=== PATIENT | female | born 1935 | race Caucasian/White ===

== ENCOUNTER 2022-04-26 17:11 | Inpatient (IN) | payer MEDICARE, SELFPAY ==
[2022-04-26 18:17] LABS: #Eosinphils 0.1 thou/uL (0.0-0.7); #Lymphocytes 0.7 thou/uL (1.20-3.40); #Monocytes 1.3 thou/uL (0.11-0.59); #Neutrophils 13.4 thou/uL (1.40-6.50); %Basophils 0.2 % (0.0-1.0); %Eosinophils 0.4 % (0.0-10.0); %Lymphocytes 4.6 % (21.0-51.0); %Monocytes 8.2 % (0.0-10.0); %Neutrophils 86.7 % (42.0-75.0); Hemoglobin 12.5 g/dL (12.0-16.0); Mean Corpuscular HGB CONC 29.6 g/dL (32.0-36.0); Mean Corpuscular Hemoglobin 22.4 pg (27.0-31.0); Mean Corpuscular Volume 75.7 fL (78.0-98.0); Platelet Count 208 thou/uL (130-400); RBC Distribution Width 18.7 % (11.5-14.5); Red Blood Cell (RBC) Count 5.59 mill/uL (4.20-5.40); White Blood Cell (WBC) Count 15.5 thou/uL (4.8-10.8)
[2022-04-26 18:31] LABS: Anisocytosis SLIGHT = 6-15 cells (100X) (0-5/hpf); Hypochromia SLIGHT = 6-15 cells (100X) (0-5/hpf); MDiff Complete? YES; Platelet Morphology Comment Appears Adequate; Polychromasia SLIGHT = 2-3 cells (100X) (0-2/hpf)
[2022-04-26 18:49] LABS: Bilirubin Negative (Negative); Blood, Urine 1+ (Negative); Clarity Turbid (Clear); Glucose, Urine (Dipstick) Normal (Negative); Ketone, Urine 20 mg/dL (Negative); Leukocyte 500 Leu/uL (Negative); Nitrite Negative (Negative); Protein, Urine (Dipstick) 70 mg/dL (Neg-Trace); Specific Gravity, Urine 1.012 (1.002-1.036); Squamous Epithelial None Seen HPF (0-3); Urobilinogen Normal mg/dL (Less than 2)
[2022-04-26 18:58] LABS: Bacteria/HPF 4+ HPF (None Seen); RBC/HPF 0-3 HPF (0-3)
[2022-04-26] MEDS ORDERED: cefTRIAXone\\ROCEPHIN 2 GM VIAL ONE (19:15)
[2022-04-26 19:24] LABS: Albumin 3.4 g/dL (3.4-4.8)
[2022-04-26 19:25] LABS: Chloride 104 mmol/L (98-107); Potassium 4.7 mmol/L (3.5-5.1); Sodium 135 mmol/L (136-145)
[2022-04-26 19:26] LABS: Calcium 8.8 mg/dL (7.8-10.44); Glucose 108 mg/dL (83-110)
[2022-04-26 19:27] LABS: Globulin 3.6 g/dL (2.4-3.5)
[2022-04-26 19:28] LABS: Anion Gap 24 mmol/L (10-20); Bilirubin, Total 0.9 mg/dL (0.2-1.2); Carbon Dioxide 12 mmol/L (23-31)
[2022-04-26 19:29] LABS: Alkaline Phosphatase 85 U/L (40-110)
[2022-04-26 19:30] LABS: Calc. Creatinine Clearance 0 mL/min (70-130); Estimated GFR 81
[2022-04-26 19:31] LABS: BUN (Urea Nitrogen) 15 mg/dL (9.8-20.1)
[2022-04-26 19:32] LABS: ALT (SGPT) 20 U/L (8-55); AST (SGOT) 36 U/L (5-34); Lipase 11 U/L (8-78)
[2022-04-26 19:33] LABS: CK (CPK) 401 U/L (29-168)
[2022-04-26 20:21] LABS: SARS-CoV-2 NAA Rapid Test Not Detected (NotDetected)
[2022-04-26] MEDS ORDERED: Aspirin Chewable 81 MG TAB ONE (21:03)
[2022-04-26] MEDS ORDERED: Ondansetron PF 4 MG/2 ML Vial IVP PRN (22:00)
[2022-04-26] MEDS ORDERED: Ondansetron ODT 4 MG TAB SL PRN (22:00)
[2022-04-26] MEDS: Sodium Chloride 0.9% 1,000 ML IV SCH (22:25)
[2022-04-27] MEDS ORDERED: hydrALAZINE 20 MG/ML VIAL SLOW IVP PRN (03:04)
[2022-04-27] MEDS ORDERED: Acetaminophen 650 MG Suppository PR PRN (03:04)
[2022-04-27] MEDS ORDERED: Labetalol HCl 100 MG/20 ML VIAL SLOW IVP PRN (03:04)
[2022-04-27 04:35] LABS: Anion Gap 20 mmol/L (10-20); BUN (Urea Nitrogen) 16 mg/dL (9.8-20.1); Calc. Creatinine Clearance 66 mL/min (70-130); Calcium 8.6 mg/dL (7.8-10.44); Carbon Dioxide 18 mmol/L (23-31); Cardiac Risk 3.2 (Less than 4.5); Chloride 106 mmol/L (98-107); Cholesterol 208 mg/dl (< 200 Desired); Estimated GFR 80; Glucose 111 mg/dL (83-110); HDL Cholesterol 66 mg/dL (>60 Neg Risk); LDL Cholesterol, Calculated 112 mg/dL; Potassium 4.4 mmol/L (3.5-5.1); Sodium 140 mmol/L (136-145); Triglycerides 152 mg/dL (Less than 150)
[2022-04-27 04:44] LABS: #Basophils 0.1 thou/uL (0.0-0.2); #Eosinphils 0.1 thou/uL (0.0-0.7); #Monocytes 1.5 thou/uL (0.11-0.59); #Neutrophils 10.3 thou/uL (1.40-6.50); %Basophils 0.5 % (0.0-1.0); %Eosinophils 1.1 % (0.0-10.0); %Lymphocytes 7.4 % (21.0-51.0); %Monocytes 11.3 % (0.0-10.0); %Neutrophils 79.7 % (42.0-75.0); Hemoglobin 11.8 g/dL (12.0-16.0); Mean Corpuscular HGB CONC 30.4 g/dL (32.0-36.0); Mean Corpuscular Hemoglobin 23.2 pg (27.0-31.0); Mean Corpuscular Volume 76.5 fL (78.0-98.0); Mean Platelet Volume 9.3 fL (7.4-10.4); Platelet Count 358 thou/uL (130-400); RBC Distribution Width 18.7 % (11.5-14.5); Red Blood Cell (RBC) Count 5.09 mill/uL (4.20-5.40); White Blood Cell (WBC) Count 12.9 thou/uL (4.8-10.8)
[2022-04-27 05:00] LABS: Hemoglobin A1c 6.4 % (4.0-6.0)
[2022-04-27] MEDS: Aspirin 300 MG Suppository PR SCH (08:46)
[2022-04-27] MEDS: Sodium Chloride 0.9% 1,000 ML IV SCH (08:46)
[2022-04-27] MEDS: cefTRIAXone\\ROCEPHIN 1 GM in Sodium Chloride 0.9% 100 ML IVPB SCH (20:59)
[2022-04-28] MEDS ORDERED: Furosemide 40 MG/4 ML VIAL ONE (03:24)
[2022-04-28] MEDS ORDERED: Furosemide 20 MG/2 ML VIAL SLOW IVP SCH (03:30)
[2022-04-28 05:14] LABS: Anion Gap 21 mmol/L (10-20); BUN (Urea Nitrogen) 18 mg/dL (9.8-20.1); Calc. Creatinine Clearance 57 mL/min (70-130); Calcium 9.2 mg/dL (7.8-10.44); Chloride 108 mmol/L (98-107); Estimated GFR 67; Glucose 155 mg/dL (83-110); Potassium 3.7 mmol/L (3.5-5.1); Sodium 144 mmol/L (136-145)
[2022-04-28 05:42] LABS: Band 7 % (5-11); Hemoglobin 12.6 g/dL (12.0-16.0); Lymphocytes 3 % (21-51); MDiff Complete? YES; Mean Corpuscular HGB CONC 33.1 g/dL (32.0-36.0); Mean Corpuscular Hemoglobin 25.1 pg (27.0-31.0); Mean Corpuscular Volume 75.9 fL (78.0-98.0); Mean Platelet Volume 8.3 fL (7.4-10.4); Monocytes 10 % (0-10); Neutrophil 80 % (42-75); Platelet Count 348 thou/uL (130-400); Platelet Morphology Comment Appears Adequate; RBC Distribution Width 18.5 % (11.5-14.5); RBC Morphology Normal; Red Blood Cell (RBC) Count 5.03 mill/uL (4.20-5.40); White Blood Cell (WBC) Count 20.5 thou/uL (4.8-10.8)
[2022-04-28 05:43] LABS: Carbon Dioxide 19 mmol/L (23-31)
[2022-04-28] MEDS ORDERED: Furosemide 40 MG/4 ML VIAL SLOW IVP SCH (07:00)
[2022-04-28] MEDS: Aspirin 300 MG Suppository PR SCH (10:14)
[2022-04-28] MEDS: Enoxaparin Sodium 40 MG/0.4 ML SYRINGE SC SCH (10:14)
[2022-04-28] MEDS: Azithromycin 500 MG in Sodium Chloride 0.9% 250 ML 250 ML IVPB SCH (23:05)
[2022-04-29] MEDS: cefTRIAXone\\ROCEPHIN 1 GM in Sodium Chloride 0.9% 100 ML IVPB SCH ×2 (00:21→20:51)
[2022-04-29 04:53] LABS: Anion Gap 20 mmol/L (10-20); BUN (Urea Nitrogen) 24 mg/dL (9.8-20.1); Calc. Creatinine Clearance 56 mL/min (70-130); Calcium 9.1 mg/dL (7.8-10.44); Carbon Dioxide 21 mmol/L (23-31); Chloride 108 mmol/L (98-107); Estimated GFR 65; Glucose 128 mg/dL (83-110); Magnesium 1.8 mg/dL (1.6-2.6); Potassium 3.1 mmol/L (3.5-5.1); Sodium 146 mmol/L (136-145)
[2022-04-29 05:04] LABS: Band 11 % (5-11); Hemoglobin 11.6 g/dL (12.0-16.0); Lymphocytes 7 % (21-51); MDiff Complete? YES; Mean Corpuscular HGB CONC 31.2 g/dL (32.0-36.0); Mean Corpuscular Volume 76.9 fL (78.0-98.0); Mean Platelet Volume 9.3 fL (7.4-10.4); Monocytes 8 % (0-10); Neutrophil 74 % (42-75); Platelet Count 345 thou/uL (130-400); RBC Distribution Width 18.6 % (11.5-14.5); Red Blood Cell (RBC) Count 4.82 mill/uL (4.20-5.40); White Blood Cell (WBC) Count 23.1 thou/uL (4.8-10.8)
[2022-04-29] MEDS: Aspirin 300 MG Suppository PR SCH (10:52)
[2022-04-29] MEDS: Enoxaparin Sodium 40 MG/0.4 ML SYRINGE SC SCH (10:52)
[2022-04-29] MEDS ORDERED: Iopamidol-370 76% 500 ML 1 ML ONE (11:41)
[2022-04-29] MEDS ORDERED: Fluconazole In NaCl,Iso-Osm 200 MG in Premix Bag 1 BAG IVPB SCH (12:00)
[2022-04-29] MEDS ORDERED: Clindamycin/D5W 900 MG in Premix Bag 1 BAG IVPB SCH (14:00)
[2022-04-29] MEDS ORDERED: Communication Order-Pharmacy FS SCH (16:14)
[2022-04-29 16:33] LABS: Hemoglobin 11.6 g/dL (12.0-16.0); Platelet Count 379 thou/uL (130-400)
[2022-04-29] MEDS: Enoxaparin Sodium 80 MG/0.8 ML SYRINGE SC SCH (20:51)
[2022-04-29] MEDS: D5 1/2 NS w/40 mEq KCL 1,000 ML IV SCH (20:54)
[2022-04-29] MEDS: Azithromycin 500 MG in Sodium Chloride 0.9% 250 ML 250 ML IVPB SCH (23:25)
[2022-04-30] MEDS: Azithromycin 500 MG in Sodium Chloride 0.9% 250 ML 250 ML IVPB SCH ×2 (00:01→23:56)
[2022-04-30 04:41] LABS: #Lymphocytes 0.9 thou/uL (1.20-3.40); #Monocytes 1.3 thou/uL (0.11-0.59); #Neutrophils 16.9 thou/uL (1.40-6.50); %Basophils 0.1 % (0.0-1.0); %Eosinophils 0.2 % (0.0-10.0); %Lymphocytes 4.9 % (21.0-51.0); %Monocytes 6.6 % (0.0-10.0); %Neutrophils 88.2 % (42.0-75.0); Hemoglobin 11.2 g/dL (12.0-16.0); Mean Corpuscular HGB CONC 28.8 g/dL (32.0-36.0); Platelet Count 359 thou/uL (130-400); RBC Distribution Width 18.8 % (11.5-14.5); Red Blood Cell (RBC) Count 4.86 mill/uL (4.20-5.40); White Blood Cell (WBC) Count 19.2 thou/uL (4.8-10.8)
[2022-04-30 04:59] LABS: Anion Gap 19 mmol/L (10-20); BUN (Urea Nitrogen) 26 mg/dL (9.8-20.1); Calc. Creatinine Clearance 66 mL/min (70-130); Carbon Dioxide 22 mmol/L (23-31); Chloride 112 mmol/L (98-107); Estimated GFR 78; Glucose 147 mg/dL (83-110); Potassium 3.4 mmol/L (3.5-5.1); Sodium 150 mmol/L (136-145)
[2022-04-30] MEDS: Clindamycin/D5W 900 MG in Premix Bag 1 BAG IVPB SCH ×3 (06:17→21:28)
[2022-04-30] MEDS: Enoxaparin Sodium 80 MG/0.8 ML SYRINGE SC SCH (10:21)
[2022-04-30] MEDS: Fluconazole In NaCl,Iso-Osm 200 MG in Premix Bag 1 BAG IVPB SCH (10:22)
[2022-04-30] MEDS: Aspirin 300 MG Suppository PR SCH (10:22)
[2022-04-30] MEDS: D5 1/2 NS w/40 mEq KCL 1,000 ML IV SCH (13:32)
[2022-04-30] MEDS: Potassium Chloride 40 MEQ in Dextrose 5% in Water 1,000 ML IV SCH (15:30)
[2022-04-30] MEDS: Apixaban 5 MG TAB PER TUBE SCH (21:28)
[2022-04-30] MEDS: cefTRIAXone\\ROCEPHIN 1 GM in Sodium Chloride 0.9% 100 ML IVPB SCH (21:28)
[2022-05-01] MEDS: Clindamycin/D5W 900 MG in Premix Bag 1 BAG IVPB SCH ×3 (05:46→22:06)
[2022-05-01 06:47] LABS: #Eosinphils 0.3 thou/uL (0.0-0.7); #Lymphocytes 0.9 thou/uL (1.20-3.40); #Monocytes 1.1 thou/uL (0.11-0.59); #Neutrophils 8.6 thou/uL (1.40-6.50); %Basophils 0.4 % (0.0-1.0); %Eosinophils 2.5 % (0.0-10.0); %Neutrophils 79.1 % (42.0-75.0); Hemoglobin 10.8 g/dL (12.0-16.0); Mean Corpuscular HGB CONC 29.5 g/dL (32.0-36.0); Mean Corpuscular Hemoglobin 23.2 pg (27.0-31.0); Mean Corpuscular Volume 78.7 fL (78.0-98.0); Mean Platelet Volume 8.7 fL (7.4-10.4); Platelet Count 377 thou/uL (130-400); RBC Distribution Width 18.8 % (11.5-14.5); Red Blood Cell (RBC) Count 4.66 mill/uL (4.20-5.40); White Blood Cell (WBC) Count 10.9 thou/uL (4.8-10.8)
[2022-05-01 06:50] LABS: Anion Gap 16 mmol/L (10-20); BUN (Urea Nitrogen) 27 mg/dL (9.8-20.1); Calc. Creatinine Clearance 66 mL/min (70-130); Calcium 8.6 mg/dL (7.8-10.44); Carbon Dioxide 23 mmol/L (23-31); Chloride 112 mmol/L (98-107); Estimated GFR 80; Glucose 180 mg/dL (83-110); Sodium 147 mmol/L (136-145)
[2022-05-01 07:45] LABS: Magnesium 1.8 mg/dL (1.6-2.6)
[2022-05-01 07:49] LABS: Troponin I 0.026 ng/mL (< 0.028)
[2022-05-01] MEDS: Fluconazole In NaCl,Iso-Osm 200 MG in Premix Bag 1 BAG IVPB SCH (10:30)
[2022-05-01] MEDS: Apixaban 5 MG TAB PER TUBE SCH ×2 (10:30→20:33)
[2022-05-01] MEDS: Potassium Chloride 40 MEQ in Dextrose 5% in Water 1,000 ML IV SCH ×2 (10:31)
[2022-05-01] MEDS: Aspirin 300 MG Suppository PR SCH (10:31)
[2022-05-01] MEDS: cefTRIAXone\\ROCEPHIN 1 GM in Sodium Chloride 0.9% 100 ML IVPB SCH (20:29)
[2022-05-01] MEDS: Atorvastatin Calcium 40 MG TAB PER TUBE SCH (20:32)
[2022-05-01] MEDS: Azithromycin 500 MG in Sodium Chloride 0.9% 250 ML 250 ML IVPB SCH (23:20)
[2022-05-02 04:46] LABS: #Basophils 0.1 thou/uL (0.0-0.2); #Eosinphils 0.6 thou/uL (0.0-0.7); #Lymphocytes 1.1 thou/uL (1.20-3.40); #Monocytes 1.3 thou/uL (0.11-0.59); #Neutrophils 7.4 thou/uL (1.40-6.50); %Basophils 0.6 % (0.0-1.0); %Eosinophils 5.8 % (0.0-10.0); %Lymphocytes 10.1 % (21.0-51.0); %Neutrophils 71.5 % (42.0-75.0); Hemoglobin 11.7 g/dL (12.0-16.0); Mean Corpuscular HGB CONC 28.9 g/dL (32.0-36.0); Mean Corpuscular Volume 82.8 fL (78.0-98.0); Mean Platelet Volume 9.2 fL (7.4-10.4); Platelet Count 343 thou/uL (130-400); RBC Distribution Width 19.1 % (11.5-14.5); Red Blood Cell (RBC) Count 4.89 mill/uL (4.20-5.40); White Blood Cell (WBC) Count 10.4 thou/uL (4.8-10.8)
[2022-05-02 05:03] LABS: Anion Gap 17 mmol/L (10-20); BUN (Urea Nitrogen) 21 mg/dL (9.8-20.1); Calc. Creatinine Clearance 69 mL/min (70-130); Calcium 8.7 mg/dL (7.8-10.44); Carbon Dioxide 22 mmol/L (23-31); Chloride 107 mmol/L (98-107); Estimated GFR 82; Glucose 182 mg/dL (83-110); Potassium 4.9 mmol/L (3.5-5.1); Sodium 141 mmol/L (136-145)
[2022-05-02] MEDS: Potassium Chloride 40 MEQ in Dextrose 5% in Water 1,000 ML IV SCH (05:57)
[2022-05-02] MEDS: Clindamycin/D5W 900 MG in Premix Bag 1 BAG IVPB SCH ×3 (05:57→21:39)
[2022-05-02] MEDS ORDERED: Fluconazole In NaCl,Iso-Osm 200 mg/100 ml Premix Bag ONE (10:00)
[2022-05-02] MEDS: Apixaban 5 MG TAB PER TUBE SCH ×2 (10:04→20:52)
[2022-05-02] MEDS: Aspirin Chewable 81 MG TAB PER TUBE SCH (10:04)
[2022-05-02] MEDS: Fluconazole In NaCl,Iso-Osm 200 MG in Premix Bag 1 BAG IVPB SCH (10:05)
[2022-05-02] MEDS: cefTRIAXone\\ROCEPHIN 1 GM in Sodium Chloride 0.9% 100 ML IVPB SCH (20:51)
[2022-05-02] MEDS: Atorvastatin Calcium 40 MG TAB PER TUBE SCH (20:52)
[2022-05-02] MEDS: Azithromycin 500 MG in Sodium Chloride 0.9% 250 ML 250 ML IVPB SCH (22:41)
[2022-05-03] MEDS: Clindamycin/D5W 900 MG in Premix Bag 1 BAG IVPB SCH (05:26)
[2022-05-03] MEDS ORDERED: Aspirin Chewable 81 MG TAB ONE (09:31)
[2022-05-03] MEDS: Apixaban 5 MG TAB PER TUBE SCH (10:01)
[2022-05-03] MEDS: Aspirin Chewable 81 MG TAB PER TUBE SCH (10:01)
[2022-05-03] MEDS: Fluconazole In NaCl,Iso-Osm 200 MG in Premix Bag 1 BAG IVPB SCH (10:01)
[2022-05-03] MEDS: Apixaban 5 MG TAB PO SCH (21:39)
[2022-05-03] MEDS: Atorvastatin Calcium 40 MG TAB PO SCH (21:39)
[2022-05-04] MEDS: Aspirin Chewable 81 MG TAB PO SCH (10:08)
[2022-05-04] MEDS: Apixaban 5 MG TAB PO SCH ×2 (10:08→21:13)
[2022-05-04] MEDS: Fluconazole In NaCl,Iso-Osm 200 MG in Premix Bag 1 BAG IVPB SCH (10:08)
[2022-05-04] MEDS: Atorvastatin Calcium 40 MG TAB PO SCH (21:12)
[2022-05-05 05:10] LABS: Platelet Count 412 thou/uL (130-400)
[2022-05-05] MEDS: Apixaban 5 MG TAB PO SCH ×2 (09:15→22:14)
[2022-05-05] MEDS: Aspirin Chewable 81 MG TAB PO SCH (09:15)
[2022-05-05] MEDS: Atorvastatin Calcium 40 MG TAB PO SCH (22:14)
[2022-05-06] MEDS ORDERED: Acetaminophen 650 MG/20.3 ML UDCUP PO PRN (00:53)
[2022-05-06] MEDS ORDERED: Acetaminophen 325 MG TAB PO PRN (01:08)
[2022-05-06] MEDS: Aspirin Chewable 81 MG TAB PO SCH (10:14)
[2022-05-06] MEDS: Apixaban 5 MG TAB PO SCH ×2 (10:14→20:58)
[2022-05-06] MEDS: Atorvastatin Calcium 40 MG TAB PO SCH (20:58)
[2022-05-07] MEDS: Aspirin Chewable 81 MG TAB PO SCH (09:59)
[2022-05-07] MEDS: Apixaban 5 MG TAB PO SCH ×2 (10:00→20:31)
[2022-05-07] MEDS: Atorvastatin Calcium 40 MG TAB PO SCH (20:31)
[2022-05-08 05:07] LABS: Platelet Count 503 thou/uL (130-400)
[2022-05-08] MEDS: Apixaban 5 MG TAB PO SCH ×2 (08:59→20:53)
[2022-05-08] MEDS: Aspirin Chewable 81 MG TAB PO SCH (08:59)
[2022-05-08 11:09] VITALS: BMI 28.0
[2022-05-08] MEDS: Atorvastatin Calcium 40 MG TAB PO SCH (20:53)
[2022-05-09] MEDS: Aspirin Chewable 81 MG TAB PO SCH (08:38)
[2022-05-09] MEDS: Apixaban 5 MG TAB PO SCH ×2 (08:38→21:09)
[2022-05-09] MEDS: Atorvastatin Calcium 40 MG TAB PO SCH (21:09)
[2022-05-10] MEDS: Apixaban 5 MG TAB PO SCH (09:09)
[2022-05-10] MEDS: Aspirin Chewable 81 MG TAB PO SCH (09:10)
[2022-05-10 11:12] VITALS: TEMP 97.6
[2022-05-10 14:04] VITALS: BP 155/82
== END 2022-05-10 17:29 | DRG 64 ==
LOC: ERS 17:11 → 2NO 20:38 → NEURO 05-07 12:07
PROVIDERS: ADMIT Internal Medicine; ATTEND Internal Medicine
PROC: 0DH67UZ Insertion of Feeding Device into Stomach, Via Natural or Artificial Opening (ICD-10-PCS; principal; 2022-04-29)
DX: I63.512 Cerebral infarction due to unspecified occlusion or stenosis of left middle cerebral artery (principal); A41.9 Sepsis, unspecified organism; G93.6 Cerebral edema; J69.0 Pneumonitis due to inhalation of food and vomit; N39.0 Urinary tract infection, site not specified; I48.92 Unspecified atrial flutter; I48.20 Chronic atrial fibrillation, unspecified; I47.2 Ventricular tachycardia; G81.91 Hemiplegia, unspecified affecting right dominant side; B96.1 Klebsiella pneumoniae [K. pneumoniae] as the cause of diseases classified elsewhere; R47.01 Aphasia; I65.22 Occlusion and stenosis of left carotid artery; J45.909 Unspecified asthma, uncomplicated; I10 Essential (primary) hypertension; R29.707 NIHSS score 7; I77.810 Thoracic aortic ectasia; E78.00 Pure hypercholesterolemia, unspecified; R13.12 Dysphagia, oropharyngeal phase; I34.0 Nonrheumatic mitral (valve) insufficiency; R29.810 Facial weakness; R47.1 Dysarthria and anarthria; L89.152 Pressure ulcer of sacral region, stage 2; Z60.2 Problems related to living alone; Z20.822 Contact with and (suspected) exposure to COVID-19; Z79.899 Other long term (current) drug therapy; Z79.82 Long term (current) use of aspirin; Z87.820 Personal history of traumatic brain injury; Z98.890 Other specified postprocedural states
CPT/HCPCS: 36415; 70450; 70496; 70498; 70551; 71045; 72125; 74018; 74230; 80048; 80053; 80061; 81003; 81015; 82550; 83036; 83690; 83735; 84443; 84484; 85014; 85018; 85025; 85049; 87040; 87077; 87086; 87186; 93005; 93010; 93306; 93880; 94640; 96361; 96374; J0456; J0696; J1450; J1650; J1940; J1956; J3480; J3490; J7050; J7070; J7620; Q9967; U0002; U0003; U0005

== ENCOUNTER 2022-10-27 00:37 | Inpatient (IN) | payer MEDICARE, OTHER ==
[2022-10-27] MEDS ORDERED: Ipratropium/Albuterol 3 ML NEB ONE (01:33)
[2022-10-27 01:50] LABS: Band 21 % (5-11); Hemoglobin 11.4 g/dL (12.0-16.0); MDiff Complete? YES; Mean Corpuscular HGB CONC 31.4 g/dL (32.0-36.0); Mean Corpuscular Hemoglobin 27.3 pg (27.0-31.0); Mean Corpuscular Volume 86.8 fl (78.0-98.0); Mean Platelet Volume 8.2 fL (7.4-10.4); Monocytes 2 % (0-10); Neutrophil 77 % (42-75); Platelet Count 345 10x3/uL (130-400); RBC Distribution Width 16.6 % (11.5-14.5); Red Blood Cell (RBC) Count 4.16 mill/uL (4.20-5.40); White Blood Cell (WBC) Count 30.1 10x3/uL (4.8-10.8)
[2022-10-27 01:53] LABS: ALT (SGPT) Less than 7 U/L (8-55); AST (SGOT) 15 U/L (5-34); Albumin 3.2 g/dL (3.4-4.8); Alkaline Phosphatase 62 U/L (40-110); Anion Gap 15 mmol/L (10-20); BUN (Urea Nitrogen) 15 mg/dL (9.8-20.1); Bilirubin, Total 0.6 mg/dL (0.2-1.2); Calc. Creatinine Clearance 0 mL/min (70-130); Calcium 8.2 mg/dL (7.8-10.44); Carbon Dioxide 17 mmol/L (23-31); Chloride 110 mmol/L (98-107); Estimated GFR 68; Globulin 3.2 g/dL (2.4-3.5); Glucose 109 mg/dL (83-110); Potassium 4.1 mmol/L (3.5-5.1); Protein, Total 6.4 g/dL (5.8-8.1); Sodium 138 mmol/L (136-145)
[2022-10-27] MEDS ORDERED: NOREPINEPHRINE 8 MG/250 ML-D5W 250 ML ONE (01:58)
[2022-10-27] MEDS ORDERED: NOREPINEPHRINE 8 MG/250 ML-D5W 250 ML IVPB SCH (02:15)
[2022-10-27] MEDS ORDERED: Albuterol 200 PUFF (6.7GM INHALER) INH PRN (02:19)
[2022-10-27 04:24] LABS: Lactic Acid 3.5 mmol/L (0.5-2.2)
[2022-10-27] MEDS ORDERED: Cefepime 2 GM in Sodium Chloride 0.9% 100 ML IVPB SCH ×2 (04:30→12:25)
[2022-10-27 04:56] VITALS: BMI 24.5
[2022-10-27] MEDS ORDERED: Vancomycin 1.5 GRAM/300 ML BAG 1.5 GM in Premix Bag 1 BAG IVPB SCH (06:30)
[2022-10-27 06:54] LABS: ALT (SGPT) 9 U/L (8-55); AST (SGOT) 13 U/L (5-34); Albumin 3.1 g/dL (3.4-4.8); Alkaline Phosphatase 54 U/L (40-110); Anion Gap 15 mmol/L (10-20); BUN (Urea Nitrogen) 18 mg/dL (9.8-20.1); Bilirubin, Total 0.9 mg/dL (0.2-1.2); Calc. Creatinine Clearance 48 mL/min (70-130); Calcium 8.3 mg/dL (7.8-10.44); Carbon Dioxide 20 mmol/L (23-31); Chloride 108 mmol/L (98-107); Estimated GFR 61; Globulin 3.1 g/dL (2.4-3.5); Glucose 130 mg/dL (83-110); Magnesium 1.2 mg/dL (1.6-2.6); Potassium 4.6 mmol/L (3.5-5.1); Protein, Total 6.2 g/dL (5.8-8.1); Sodium 138 mmol/L (136-145)
[2022-10-27 06:59] LABS: Hemoglobin 10.2 g/dL (12.0-16.0); Mean Corpuscular HGB CONC 32.2 g/dL (32.0-36.0); Mean Corpuscular Volume 86.7 fl (78.0-98.0); Mean Platelet Volume 8.4 fL (7.4-10.4); Platelet Count 352 10x3/uL (130-400); RBC Distribution Width 16.5 % (11.5-14.5); Red Blood Cell (RBC) Count 3.66 mill/uL (4.20-5.40); White Blood Cell (WBC) Count 30.2 10x3/uL (4.8-10.8)
[2022-10-27 07:00] LABS: Band 33 % (5-11); Lymphocytes 2 % (21-51); MDiff Complete? YES; Neutrophil 65 % (42-75)
[2022-10-27] MEDS ORDERED: Vancomycin 1 GM in Premix Bag 1 BAG IVPB SCH (09:00)
[2022-10-27] MEDS: Gabapentin 100 MG CAP PO SCH ×2 (09:16→21:06)
[2022-10-27 09:57] LABS: Lactic Acid 2.8 mmol/L (0.5-2.2)
[2022-10-27] MEDS ORDERED: Cefepime 1 GM in Sodium Chloride 0.9% 100 ML IVPB SCH ×2 (10:00→17:00)
[2022-10-27] MEDS: Lactated Ringer's 1,000 ML IV SCH (11:45)
[2022-10-27] MEDS ORDERED: Magnesium 2 GM/50 ML(in water) 2 GM in Premix Bag 1 BAG IVPB SCH (12:30)
[2022-10-27] MEDS: Rivaroxaban 15 MG TAB PO SCH (16:59)
[2022-10-27] MEDS: Atorvastatin Calcium 40 MG TAB PO SCH (21:08)
[2022-10-27] MEDS: Cefepime 2 GM in Sodium Chloride 0.9% 100 ML IVPB SCH (21:08)
[2022-10-28] MEDS: Lactated Ringer's 1,000 ML IV SCH ×3 (00:19→14:44)
[2022-10-28 05:13] LABS: Hemoglobin 9.4 g/dL (12.0-16.0); Mean Corpuscular HGB CONC 31.9 g/dL (32.0-36.0); Mean Corpuscular Hemoglobin 27.7 pg (27.0-31.0); Mean Corpuscular Volume 86.9 fl (78.0-98.0); Mean Platelet Volume 8.7 fL (7.4-10.4); Platelet Count 282 10x3/uL (130-400); RBC Distribution Width 16.5 % (11.5-14.5); Red Blood Cell (RBC) Count 3.39 mill/uL (4.20-5.40); White Blood Cell (WBC) Count 16.9 10x3/uL (4.8-10.8)
[2022-10-28 05:17] LABS: Lactic Acid 0.9 mmol/L (0.5-2.2)
[2022-10-28 05:26] LABS: Anion Gap 10 mmol/L (10-20); BUN (Urea Nitrogen) 19 mg/dL (9.8-20.1); Calc. Creatinine Clearance 60 mL/min (70-130); Calcium 8.2 mg/dL (7.8-10.44); Carbon Dioxide 22 mmol/L (23-31); Chloride 107 mmol/L (98-107); Estimated GFR 77; Glucose 78 mg/dL (83-110); Potassium 4.2 mmol/L (3.5-5.1); Sodium 135 mmol/L (136-145)
[2022-10-28 05:45] LABS: MDiff Complete? YES
[2022-10-28 05:46] LABS: Band 7 % (5-11); Eosinophils 1 % (0-10); Lymphocytes 7 % (21-51); Monocytes 4 % (0-10); Neutrophil 81 % (42-75)
[2022-10-28] MEDS ORDERED: Vancomycin 1 GM in Premix Bag 1 BAG IVPB SCH (06:00)
[2022-10-28] MEDS: Gabapentin 100 MG CAP PO SCH ×2 (08:18→21:23)
[2022-10-28] MEDS: Cefepime 2 GM in Sodium Chloride 0.9% 100 ML IVPB SCH ×2 (09:19→21:24)
[2022-10-28] MEDS: Rivaroxaban 15 MG TAB PO SCH (18:39)
[2022-10-28] MEDS: Atorvastatin Calcium 40 MG TAB PO SCH (21:23)
[2022-10-29 04:20] LABS: #Eosinphils 0.6 thou/uL (0.0-0.7); #Lymphocytes 1.2 thou/uL (1.20-3.40); #Monocytes 0.8 thou/uL (0.11-0.59); #Neutrophils 7.1 thou/uL (1.40-6.50); %Basophils 0.1 % (0.0-1.0); %Eosinophils 6.5 % (0.0-10.0); %Lymphocytes 12.2 % (21.0-51.0); %Monocytes 7.8 % (0.0-10.0); %Neutrophils 73.4 % (42.0-75.0); Hemoglobin 9.3 g/dL (12.0-16.0); Mean Corpuscular HGB CONC 31.5 g/dL (32.0-36.0); Mean Corpuscular Hemoglobin 27.4 pg (27.0-31.0); Mean Corpuscular Volume 86.8 fl (78.0-98.0); Mean Platelet Volume 9.1 fL (7.4-10.4); Platelet Count 297 10x3/uL (130-400); RBC Distribution Width 16.4 % (11.5-14.5); Red Blood Cell (RBC) Count 3.41 mill/uL (4.20-5.40); White Blood Cell (WBC) Count 9.7 10x3/uL (4.8-10.8)
[2022-10-29 04:41] LABS: Anion Gap 10 mmol/L (10-20); BUN (Urea Nitrogen) 15 mg/dL (9.8-20.1); Calc. Creatinine Clearance 65 mL/min (70-130); Calcium 8.5 mg/dL (7.8-10.44); Carbon Dioxide 24 mmol/L (23-31); Chloride 107 mmol/L (98-107); Estimated GFR 85; Glucose 75 mg/dL (83-110); Potassium 3.9 mmol/L (3.5-5.1); Sodium 137 mmol/L (136-145)
[2022-10-29] MEDS: Gabapentin 100 MG CAP PO SCH ×2 (08:09→20:43)
[2022-10-29] MEDS: Cefepime 1 GM in Sodium Chloride 0.9% 100 ML IVPB SCH ×2 (10:42→20:44)
[2022-10-29] MEDS: Rivaroxaban 15 MG TAB PO SCH (16:01)
[2022-10-29] MEDS: Atorvastatin Calcium 40 MG TAB PO SCH (20:44)
[2022-10-30] MEDS ORDERED: Furosemide 40 MG/4 ML VIAL SLOW IVP SCH (08:30)
[2022-10-30] MEDS ORDERED: Metoprolol Tartrate 25 MG TAB PO SCH (08:45)
[2022-10-30] MEDS: Gabapentin 100 MG CAP PO SCH ×2 (08:52→19:43)
[2022-10-30] MEDS: Cefepime 1 GM in Sodium Chloride 0.9% 100 ML IVPB SCH (08:52)
[2022-10-30] MEDS ORDERED: Atenolol 25 MG TAB PO SCH (09:00)
[2022-10-30] MEDS: Lactated Ringer's 1,000 ML IV SCH (09:07)
[2022-10-30] MEDS: Rivaroxaban 15 MG TAB PO SCH (18:11)
[2022-10-30] MEDS: Atorvastatin Calcium 40 MG TAB PO SCH (19:43)
[2022-10-31] MEDS: Gabapentin 100 MG CAP PO SCH ×2 (08:29→20:40)
[2022-10-31] MEDS ORDERED: Electrolyte Replacement Protocol 1 EACH FS SCH (08:30)
[2022-10-31 09:08] LABS: #Eosinphils 0.5 thou/uL (0.0-0.7); #Lymphocytes 1.4 thou/uL (1.20-3.40); #Monocytes 1.1 thou/uL (0.11-0.59); #Neutrophils 7.5 thou/uL (1.40-6.50); %Basophils 0.4 % (0.0-1.0); %Lymphocytes 13.6 % (21.0-51.0); %Monocytes 10.6 % (0.0-10.0); %Neutrophils 70.5 % (42.0-75.0); Hemoglobin 11.4 g/dL (12.0-16.0); Mean Corpuscular HGB CONC 32.6 g/dL (32.0-36.0); Mean Corpuscular Hemoglobin 28.1 pg (27.0-31.0); Mean Corpuscular Volume 86.1 fl (78.0-98.0); Mean Platelet Volume 8.5 fL (7.4-10.4); Platelet Count 294 10x3/uL (130-400); RBC Distribution Width 16.4 % (11.5-14.5); Red Blood Cell (RBC) Count 4.07 mill/uL (4.20-5.40); White Blood Cell (WBC) Count 10.6 10x3/uL (4.8-10.8)
[2022-10-31 09:29] LABS: ALT (SGPT) Less than 7 U/L (8-55); AST (SGOT) 9 U/L (5-34); Albumin 3.1 g/dL (3.4-4.8); Alkaline Phosphatase 64 U/L (40-110); Anion Gap 14 mmol/L (10-20); BUN (Urea Nitrogen) 12 mg/dL (9.8-20.1); Bilirubin, Total 0.5 mg/dL (0.2-1.2); Calc. Creatinine Clearance 58 mL/min (70-130); Calcium 8.5 mg/dL (7.8-10.44); Carbon Dioxide 25 mmol/L (23-31); Chloride 101 mmol/L (98-107); Estimated GFR 76; Globulin 3.2 g/dL (2.4-3.5); Glucose 93 mg/dL (83-110); Magnesium 1.6 mg/dL (1.6-2.6); Phosphorus 3.4 mg/dL (2.3-4.7); Potassium 3.6 mmol/L (3.5-5.1); Protein, Total 6.3 g/dL (5.8-8.1); Sodium 136 mmol/L (136-145)
[2022-10-31] MEDS ORDERED: Magnesium 2 GM/50 ML(in water) 2 GM in Premix Bag 1 BAG IVPB SCH (14:00)
[2022-10-31] MEDS: Rivaroxaban 15 MG TAB PO SCH (16:27)
[2022-10-31] MEDS: Atorvastatin Calcium 40 MG TAB PO SCH (20:40)
[2022-10-31] MEDS ORDERED: Cepastat Lozenges 1 LOZ PO PRN (22:41)
[2022-10-31] MEDS ORDERED: Benzonatate 100 MG CAP PO PRN (22:41)
[2022-11-01 06:40] LABS: #Eosinphils 1.2 thou/uL (0.0-0.7); #Lymphocytes 1.7 thou/uL (1.20-3.40); #Monocytes 1.1 thou/uL (0.11-0.59); #Neutrophils 5.8 thou/uL (1.40-6.50); %Basophils 0.5 % (0.0-1.0); %Eosinophils 12.2 % (0.0-10.0); %Lymphocytes 17.1 % (21.0-51.0); %Neutrophils 59.2 % (42.0-75.0); Hemoglobin 11.2 g/dL (12.0-16.0); Mean Corpuscular HGB CONC 32.7 g/dL (32.0-36.0); Mean Corpuscular Hemoglobin 27.9 pg (27.0-31.0); Mean Corpuscular Volume 85.5 fl (78.0-98.0); Mean Platelet Volume 8.4 fL (7.4-10.4); Platelet Count 335 10x3/uL (130-400); RBC Distribution Width 16.2 % (11.5-14.5); White Blood Cell (WBC) Count 9.8 10x3/uL (4.8-10.8)
[2022-11-01 06:57] LABS: Anion Gap 13 mmol/L (10-20); BUN (Urea Nitrogen) 14 mg/dL (9.8-20.1); Calc. Creatinine Clearance 57 mL/min (70-130); Calcium 8.6 mg/dL (7.8-10.44); Carbon Dioxide 24 mmol/L (23-31); Chloride 102 mmol/L (98-107); Estimated GFR 75; Glucose 105 mg/dL (83-110); Potassium 3.6 mmol/L (3.5-5.1); Sodium 135 mmol/L (136-145)
[2022-11-01] MEDS: Gabapentin 100 MG CAP PO SCH ×2 (08:30→20:05)
[2022-11-01] MEDS: Rivaroxaban 15 MG TAB PO SCH (16:36)
[2022-11-01] MEDS: Atorvastatin Calcium 40 MG TAB PO SCH (20:06)
[2022-11-02 07:34] LABS: #Eosinphils 1.1 thou/uL (0.0-0.7); #Lymphocytes 1.8 thou/uL (1.20-3.40); #Monocytes 1.3 thou/uL (0.11-0.59); #Neutrophils 9.3 thou/uL (1.40-6.50); %Basophils 0.2 % (0.0-1.0); %Eosinophils 8.3 % (0.0-10.0); %Lymphocytes 13.1 % (21.0-51.0); %Monocytes 9.3 % (0.0-10.0); Hemoglobin 10.9 g/dL (12.0-16.0); Mean Corpuscular Hemoglobin 27.5 pg (27.0-31.0); Mean Corpuscular Volume 86.1 fl (78.0-98.0); Mean Platelet Volume 8.6 fL (7.4-10.4); Platelet Count 329 10x3/uL (130-400); RBC Distribution Width 16.4 % (11.5-14.5); Red Blood Cell (RBC) Count 3.95 mill/uL (4.20-5.40); White Blood Cell (WBC) Count 13.5 10x3/uL (4.8-10.8)
[2022-11-02 07:44] LABS: Anion Gap 13 mmol/L (10-20); BUN (Urea Nitrogen) 13 mg/dL (9.8-20.1); Calc. Creatinine Clearance 61 mL/min (70-130); Calcium 8.5 mg/dL (7.8-10.44); Carbon Dioxide 24 mmol/L (23-31); Chloride 101 mmol/L (98-107); Estimated GFR 81; Glucose 90 mg/dL (83-110); Potassium 3.4 mmol/L (3.5-5.1); Sodium 135 mmol/L (136-145)
[2022-11-02] MEDS ORDERED: Electrolyte Replacement Protocol 1 EACH FS SCH (08:48)
[2022-11-02] MEDS: Gabapentin 100 MG CAP PO SCH ×2 (09:50→21:39)
[2022-11-02] MEDS: Potassium Chloride 20 MEQ TAB PO SCH ×2 (09:50→09:58)
[2022-11-02] MEDS ORDERED: Magnesium 2 GM/50 ML(in water) 2 GM in Premix Bag 1 BAG IVPB SCH (10:00)
[2022-11-02] MEDS ORDERED: Potassium Bicarbonate/Cit Ac 20 MEQ TAB PO SCH (10:45)
[2022-11-02] MEDS: Rivaroxaban 15 MG TAB PO SCH (17:05)
[2022-11-02] MEDS: Cefepime 1 GM in Sodium Chloride 0.9% 100 ML IVPB SCH (21:38)
[2022-11-02] MEDS: Atorvastatin Calcium 40 MG TAB PO SCH (21:39)
[2022-11-03 07:13] LABS: #Eosinphils 0.9 thou/uL (0.0-0.7); #Lymphocytes 1.5 thou/uL (1.20-3.40); %Basophils 0.3 % (0.0-1.0); %Eosinophils 11.1 % (0.0-10.0); %Monocytes 11.1 % (0.0-10.0); %Neutrophils 59.5 % (42.0-75.0); Hemoglobin 11.4 g/dL (12.0-16.0); Mean Corpuscular HGB CONC 33.4 g/dL (32.0-36.0); Mean Corpuscular Hemoglobin 28.9 pg (27.0-31.0); Mean Corpuscular Volume 86.5 fl (78.0-98.0); Mean Platelet Volume 7.9 fL (7.4-10.4); Platelet Count 350 10x3/uL (130-400); Red Blood Cell (RBC) Count 3.95 mill/uL (4.20-5.40); White Blood Cell (WBC) Count 8.5 10x3/uL (4.8-10.8)
[2022-11-03 07:38] LABS: Anion Gap 13 mmol/L (10-20); BUN (Urea Nitrogen) 15 mg/dL (9.8-20.1); Calc. Creatinine Clearance 56 mL/min (70-130); Calcium 8.6 mg/dL (7.8-10.44); Carbon Dioxide 23 mmol/L (23-31); Chloride 103 mmol/L (98-107); Estimated GFR 74; Glucose 88 mg/dL (83-110); Sodium 135 mmol/L (136-145)
[2022-11-03] MEDS: Cefepime 1 GM in Sodium Chloride 0.9% 100 ML IVPB SCH ×2 (09:08→20:01)
[2022-11-03] MEDS: Gabapentin 100 MG CAP PO SCH ×2 (09:12→20:02)
[2022-11-03] MEDS: Rivaroxaban 15 MG TAB PO SCH (17:10)
[2022-11-03 18:11] LABS: Bacteria/HPF None Seen HPF (None Seen); Bilirubin Negative (Negative); Blood, Urine Negative (Negative); CAUTI Indications for Culture Alt mental st,lethar; Clarity Clear (Clear); Glucose, Urine (Dipstick) Normal (Negative); Ketone, Urine Negative (Negative); Leukocyte 25 Leu/uL (Negative); Nitrite Negative (Negative); Protein, Urine (Dipstick) 30 mg/dL (Neg-Trace); RBC/HPF 0-3 HPF (0-3); Specific Gravity, Urine 1.021 (1.002-1.036); Urobilinogen Normal mg/dL (Less than 2); pH, Urine 6.5 (5.0-9.0)
[2022-11-03 18:13] LABS: Urine Culture Reflex Yes Yes
[2022-11-03] MEDS: Atorvastatin Calcium 40 MG TAB PO SCH (20:02)
[2022-11-04 06:42] LABS: #Eosinphils 0.7 thou/uL (0.0-0.7); #Lymphocytes 1.5 thou/uL (1.20-3.40); #Monocytes 1.1 thou/uL (0.11-0.59); #Neutrophils 5.3 thou/uL (1.40-6.50); %Basophils 0.3 % (0.0-1.0); %Eosinophils 8.4 % (0.0-10.0); %Lymphocytes 17.3 % (21.0-51.0); %Monocytes 12.7 % (0.0-10.0); %Neutrophils 61.2 % (42.0-75.0); Mean Corpuscular HGB CONC 32.7 g/dL (32.0-36.0); Mean Corpuscular Hemoglobin 28.3 pg (27.0-31.0); Mean Corpuscular Volume 86.5 fl (78.0-98.0); Platelet Count 355 10x3/uL (130-400); RBC Distribution Width 16.2 % (11.5-14.5); Red Blood Cell (RBC) Count 3.88 mill/uL (4.20-5.40); White Blood Cell (WBC) Count 8.7 10x3/uL (4.8-10.8)
[2022-11-04 06:52] LABS: Anion Gap 12 mmol/L (10-20); BUN (Urea Nitrogen) 14 mg/dL (9.8-20.1); Calc. Creatinine Clearance 59 mL/min (70-130); Calcium 8.7 mg/dL (7.8-10.44); Carbon Dioxide 23 mmol/L (23-31); Chloride 104 mmol/L (98-107); Estimated GFR 78; Glucose 112 mg/dL (83-110); Potassium 3.8 mmol/L (3.5-5.1); Sodium 135 mmol/L (136-145)
[2022-11-04] MEDS: Cefepime 1 GM in Sodium Chloride 0.9% 100 ML IVPB SCH (09:50)
[2022-11-04] MEDS: Gabapentin 100 MG CAP PO SCH ×2 (09:51→19:26)
[2022-11-04] MEDS: Rivaroxaban 15 MG TAB PO SCH (17:58)
[2022-11-04] MEDS: Atorvastatin Calcium 40 MG TAB PO SCH (19:26)
[2022-11-04] MEDS: Cefdinir 300 MG CAP PO SCH (19:26)
[2022-11-04] MEDS ORDERED: Cefpodoxime 200 MG TAB PO SCH (21:00)
[2022-11-05 07:32] LABS: #Eosinphils 0.6 thou/uL (0.0-0.7); #Lymphocytes 1.4 thou/uL (1.20-3.40); #Neutrophils 5.4 thou/uL (1.40-6.50); %Basophils 0.5 % (0.0-1.0); %Eosinophils 6.8 % (0.0-10.0); %Lymphocytes 17.1 % (21.0-51.0); %Monocytes 11.4 % (0.0-10.0); %Neutrophils 64.2 % (42.0-75.0); Hemoglobin 11.3 g/dL (12.0-16.0); Mean Corpuscular HGB CONC 31.6 g/dL (32.0-36.0); Mean Corpuscular Hemoglobin 27.4 pg (27.0-31.0); Mean Corpuscular Volume 86.7 fl (78.0-98.0); Mean Platelet Volume 8.1 fL (7.4-10.4); Platelet Count 348 10x3/uL (130-400); RBC Distribution Width 16.1 % (11.5-14.5); Red Blood Cell (RBC) Count 4.13 mill/uL (4.20-5.40); White Blood Cell (WBC) Count 8.4 10x3/uL (4.8-10.8)
[2022-11-05 07:50] LABS: Anion Gap 13 mmol/L (10-20); BUN (Urea Nitrogen) 14 mg/dL (9.8-20.1); Calc. Creatinine Clearance 64 mL/min (70-130); Calcium 8.7 mg/dL (7.8-10.44); Carbon Dioxide 24 mmol/L (23-31); Chloride 103 mmol/L (98-107); Estimated GFR 86; Glucose 96 mg/dL (83-110); Potassium 3.8 mmol/L (3.5-5.1); Sodium 136 mmol/L (136-145)
[2022-11-05] MEDS: Cefdinir 300 MG CAP PO SCH ×2 (08:26→20:29)
[2022-11-05] MEDS: Gabapentin 100 MG CAP PO SCH ×2 (08:26→20:29)
[2022-11-05] MEDS: Rivaroxaban 15 MG TAB PO SCH (17:39)
[2022-11-05] MEDS: Atorvastatin Calcium 40 MG TAB PO SCH (20:30)
[2022-11-06 07:09] LABS: #Basophils 0.1 thou/uL (0.0-0.2); #Eosinphils 0.5 thou/uL (0.0-0.7); #Lymphocytes 1.7 thou/uL (1.20-3.40); #Monocytes 0.9 thou/uL (0.11-0.59); #Neutrophils 5.5 thou/uL (1.40-6.50); %Basophils 0.7 % (0.0-1.0); %Eosinophils 5.9 % (0.0-10.0); %Lymphocytes 19.6 % (21.0-51.0); %Monocytes 10.7 % (0.0-10.0); %Neutrophils 63.2 % (42.0-75.0); Mean Corpuscular HGB CONC 33.3 g/dL (32.0-36.0); Mean Corpuscular Hemoglobin 28.9 pg (27.0-31.0); Mean Corpuscular Volume 86.9 fl (78.0-98.0); Mean Platelet Volume 7.7 fL (7.4-10.4); Platelet Count 345 10x3/uL (130-400); RBC Distribution Width 15.9 % (11.5-14.5); Red Blood Cell (RBC) Count 3.81 mill/uL (4.20-5.40); White Blood Cell (WBC) Count 8.6 10x3/uL (4.8-10.8)
[2022-11-06 07:27] LABS: Anion Gap 13 mmol/L (10-20); BUN (Urea Nitrogen) 12 mg/dL (9.8-20.1); Calc. Creatinine Clearance 66 mL/min (70-130); Calcium 8.6 mg/dL (7.8-10.44); Carbon Dioxide 23 mmol/L (23-31); Chloride 104 mmol/L (98-107); Estimated GFR 86; Glucose 88 mg/dL (83-110); Potassium 3.8 mmol/L (3.5-5.1); Sodium 136 mmol/L (136-145)
[2022-11-06] MEDS: Cefdinir 300 MG CAP PO SCH ×2 (08:16→20:07)
[2022-11-06] MEDS: Gabapentin 100 MG CAP PO SCH ×2 (08:16→20:07)
[2022-11-06] MEDS: Rivaroxaban 15 MG TAB PO SCH (17:19)
[2022-11-06] MEDS: Atorvastatin Calcium 40 MG TAB PO SCH (20:07)
[2022-11-07 09:00] VITALS: BP 113/76; TEMP 97.7
[2022-11-07] MEDS: Cefdinir 300 MG CAP PO SCH (09:24)
[2022-11-07] MEDS: Gabapentin 100 MG CAP PO SCH (09:25)
[2022-11-07] MEDS: Rivaroxaban 15 MG TAB PO SCH (17:37)
== END 2022-11-07 17:45 | DRG 871 ==
LOC: ERS 00:37 → CCU 02:19 → T4-A 10-29 22:16
PROVIDERS: ADMIT Internal Medicine; ATTEND Hospitalist
PROC: 3E03329 Introduction of Other Anti-infective into Peripheral Vein, Percutaneous Approach (ICD-10-PCS; principal; 2022-10-27)
PROC: 3E033XZ Introduction of Vasopressor into Peripheral Vein, Percutaneous Approach (ICD-10-PCS; 2022-10-27)
DX: A41.02 Sepsis due to Methicillin resistant Staphylococcus aureus (principal); J15.212 Pneumonia due to Methicillin resistant Staphylococcus aureus; J96.01 Acute respiratory failure with hypoxia; R65.21 Severe sepsis with septic shock; J69.0 Pneumonitis due to inhalation of food and vomit; I48.92 Unspecified atrial flutter; E44.0 Moderate protein-calorie malnutrition; Z66 Do not resuscitate; D53.9 Nutritional anemia, unspecified; E83.42 Hypomagnesemia; I48.91 Unspecified atrial fibrillation; R13.12 Dysphagia, oropharyngeal phase; Z88.0 Allergy status to penicillin; Z88.8 Allergy status to other drugs, medicaments and biological substances; Z79.51 Long term (current) use of inhaled steroids; Z79.01 Long term (current) use of anticoagulants; Z79.899 Other long term (current) drug therapy; Z68.24 Body mass index [BMI] 24.0-24.9, adult; E87.6 Hypokalemia
CPT/HCPCS: 36415; 36556; 71045; 71250; 74230; 80048; 80053; 81001; 82533; 83605; 83735; 84100; 84145; 84443; 85025; 87040; 87081; 87086; J0692; J1940; J3370; J3370-JW; J3475; J3490; J7120; J7620